=== PATIENT | male | born 1990 | race Caucasian/White ===

== ENCOUNTER 2023-12-22 18:06 | Emergency (ER) | payer OTHER, BC, SELFPAY ==
[2023-12-22 18:25] VITALS: BP 115/71; PULSE 63; RESP 20; TEMP 36.7; O2SAT 99; BMI 25.0
--- NOTE | 2023-12-22 18:25 | ED.SKABFB ---
HPI - Skin/Abscess/Foreign Bdy General Chief complaint: Skin/Abscess/Foreign Body Stated complaint: Rt Index Finger Laceration/Work related Time Seen by Provider: 12/23/23 04:01 Source: patient Mode of arrival: ambulatory Limitations: no limitations History of Present Illness ED Provider: MONICA BERRIOS narrative: 33 yo male L hand dominant injuried R index finger with metal at 4pm. He is unsure about his Tdap. He has no other injuries. Bleeding is controlled. No concern for FB MD complaint: laceration Onset (ago): day(s) (4pm yesterday) Tetanus up to date: unsure Location: R hand Severity: mild Pain Consistency: intermittent Relieving factors: none Exacerbating factors: palpation and movement Associated symptoms: denies other symptoms Treatments prior to arrival: bandages Related Data Allergies Allergy/AdvReac Type Severity Reaction Status Date / Time No Known Allergies Allergy Verified 12/22/23 18:26 Review of Systems Review of Systems: Constitutional : No Fever, No Chills, Cardiovascular : No Chest Pain, No SOB Respiratory : No Dyspnea Gastrointestinal : No abdominal pain Musculoskeletal : No Joint Swelling Skin : No rash, positive skin laceration Neuro : No Weakness, No Numbness All other systems reviewed and are negative [facility] Past Medical History Attestation statement: The following information was validated with the patient. Medical History No pertinent past medical history Social History Social History (Updated 12/23/23 @ 04:36 by Jessica Nicholson DO) Patient Tobacco Use Status: Never used Tobacco Physical Exam Vital Signs: Vital Signs: Last Vital Signs Temp 98.5 F 12/23/23 01:21 Pulse 52 12/23/23 01:21 Resp 18 12/23/23 01:21 BP 113/68 12/23/23 01:21 Pulse Ox 100 12/23/23 01:21 O2 Del Method Room Air 12/23/23 01:21 BMI result Body Mass Index 25.0 Appearance: Alert. Oriented X3. No acute distress. Eyes: Pupils equal, round and reactive to light. ENT: Pharynx normal. Neck: Normal inspection. Neck supple. CVS: Pulses normal. Respiratory: No respiratory distress. Abdomen: atraumatic Skin: Skin warm and dry. Normal skin color. Extremities: No lower extremity edema. R index finger overlying the middle phalanx on dorsum that dose cross distal joint macerated superficial avulsion but has flexion intact but slightly limited flexion at distal phalanx due to swelling, BCR intact Neuro: Oriented X 3. No motor deficit. No sensory deficit. Course Course Course Narrative: This is a Rapid Medical Examination (RME) performed by Maikel Powell PA-C in triage. Full HPI, ROS, assessment and treatment plan per primary provider in the Main ED. 33 yo male here for eval of laceration to right index finger sustained at work today after cutting the finger on a chair rack. reports a large amount of blood initially, now controlled. no thinners. unsure of tetanus. Plan: ?lac repair, tdap booster Medical Decision Making Medical Decision Making MDM Narrative: 33 yo male L hand dominant here with superficial maceration to R index finger at this time edges are very thin and friable he has flex and ext intact though there is concern for distal phalanx on testing at this time will steri strip place splint and refer to ortho - he is aware to call today. NV intact Differential Diagnosis Differential Diagnoses: The differential diagnosis associated with the presentation includes laceration, partial tendon injury Discharge Plan Discharge Clinical Impression: Finger laceration Patient Disposition: Home, Self-Care Instructions: Finger Laceration (ED) Additional Instructions: monitor for increased redness, yellow drainage, fevers please call and follow up with hand surgery today to make sure there is no underlying tendon injury okay to shower but no pool/ocean/hyde splint for the next 3 days steri strips will fall off in 5 to 7 days - try not to get wet if possible Referrals: [facility] [Provider Group] Stand Alone Forms: Work/School Release Print Language: [place] Citizen
[2023-12-23 01:21] VITALS: BP 113/68; PULSE 52; RESP 18; TEMP 36.9; O2SAT 100
[2023-12-23] MEDS: Diphth,Pertus(ACell),Tet Adult 0.5 ML SYRINGE IM (04:48)
[2023-12-23 04:56] VITALS: BP 120/70; PULSE 58; RESP 16; TEMP 36.7; O2SAT 98
== END 2023-12-23 04:57 | disposition home or self-care (01) ==
PROVIDERS: Emergency Provider Emergency Medicine
DX: S61.210A Laceration without foreign body of right index finger without damage to nail, initial encounter (principal); M79.641 Pain in right hand; W45.8XXA Other foreign body or object entering through skin, initial encounter; Y93.89 Activity, other specified; Y92.89 Other specified places as the place of occurrence of the external cause; Y99.8 Other external cause status; Z23 Encounter for immunization
CPT/HCPCS: 29130; 90471; 90715; 99283; 99284

== ENCOUNTER 2023-12-24 10:57 | Outpatient (AMB) | payer OTHER, BC, SELFPAY ==
--- NOTE | 2023-12-24 11:06 | MHC.OFFVIS ---
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 Patient reports while at work he was moving a heavy object with wheels at the bottom when his finger got caught on one of the wheels causing a laceration to his finger. He presented to [facility] ER where x-rays were taken and steri-strips were applied as well as a finger splint. He continues to have swelling. His current pain level is a 3 out of 10. He has been out of work since injury with a return to work date on 12/27/23. 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 He reports he was moving a heavy object at work with wheels at the bottom when his finger got caught on one of the wheels causing a laceration to his finger. He was seen at ER where x-rays were performed, steri strips were applied and she was placed in a finger splint. He currently states he has swelling and pain in his finger and rates the pain as 3 on the scale of 0-10. He has been out of work since the injury. [facility] Medical History No pertinent past medical history Social History (Updated 12/24/23 @ 11:08 by KADEN Castellanos) Patient Tobacco Use Status: Current someday Tobacco user e-Cigarette/Vaping Use: Currently Using Current occupation: export coordinator, right hand dominant Review of Systems Const All systems reviewed & are unremarkable except as noted in HPI and below Physical Exam Vital Signs: BMI result Body Mass Index 25.0 Const General: cooperative, healthy appearing, comfortable, no acute distress, well developed and alert Orientation/consciousness: patient oriented x3 HEENT Head: Yes normal to inspection, Yes normocephalic and Yes atraumatic Eyes General: appearance normal, both eyes and all related structures Resp Effort & Inspection: normal respiratory effort and able to speak in complete sentences Cardio Rate: regular rate Peripheral pulses: Peripheral pulses 2+ throughout GI Palpation (GI): Soft to palpation Skin Lesions: no lesions Rashes: no rashes Neuro General: patient oriented x3 Extrem Other: Right finger: Normal to inspection. He does have an abrasion over the dorsal aspect of DIP with slight erythema due to granulation tissue. He also has a laceration over the PIP of index finger at the volar side. FDP and FDS are intact. Full extension with lag. NVI. Assessment & Plan Assessment & Plan (1) Finger laceration: Code(s): S61.219A - Laceration without foreign body of unspecified finger without damage to nail, initial encounter Category: Medical Qualifiers: Damage to nail status: without damage Encounter type: initial encounter Finger: index finger Foreign body presence: without foreign body Laterality: right Qualified Code(s): S61.210A - Laceration without foreign body of right index finger without damage to nail, initial encounter Plan We discussed placing him in a finger splint. I did show him some active and passive ROM of his finger and encouraged him to work throughout the week. He should also perform warm soapy water washes to his finger and dry completely and then reapply dry dressing. He will remain out of work till I see her back in 1 week with new x-rays, sooner if needed. He was also given a prescription of antibiotics for the redness over dip joint Medications: New amoxicillin-pot clavulanate 875-125 mg 1 tab PO BID 14 tabs 0RF 7 days Patient Instructions: Scribed for Michael Kirkland PA-C, by Dc Purdy medical office scheduler, on 12/24/2023 at 11:15 AM EST. ?I, Michael Kirkland PA-C, have personally reviewed and agree with the information entered by the scribe. Coding Level of Care Code New Pt Level 3 (27277) Complex EM visit Add On G2211 Diagnoses Finger laceration S61.210A Damage to nail status: without damage Encounter type: initial encounter Finger: index finger Foreign body presence: without foreign body Laterality: right
[2023-12-24 11:10] VITALS: BMI 25.0
== END 2023-12-24 11:46 | disposition home or self-care (01) ==
PROVIDERS: PCP Internal Medicine; Visit Provider Physician Assistant
DX: S61.210A Laceration without foreign body of right index finger without damage to nail, initial encounter (principal); Z04.2 Encounter for examination and observation following work accident
CPT/HCPCS: 99203

== ENCOUNTER → 2023-12-24 10:57 | Outpatient (BNVA) | payer BC, OTHER, SELFPAY | PROVIDERS: PCP Internal Medicine; Visit Provider Physician Assistant | DX: S61.210A Laceration without foreign body of right index finger without damage to nail, initial encounter (principal) | CPT/HCPCS: 99202 ==

== ENCOUNTER 2023-12-31 10:53 | Outpatient (AMB) | payer OTHER, BC, SELFPAY ==
--- NOTE | 2023-12-31 11:15 | MHC.OFFVIS ---
Intake Visit Reasons: f/u WC Rt Index Finger Laceration 12/22/23 Intake Note: Abilio a 33 year old male who presents today for a follow up of WC right index finger laceration, DOI 12/22/23. Patient reports he is doing well, states wound is healing good. He has completed antibiotics as prescribed. Allergies No Known Allergies Allergy (Verified 12/31/23 11:18) Medication List - Last Reconciled 01/02/24 by Michael Kirkland PA-C No Known Home Meds HPI HPI f/u WC Rt Index Finger Laceration 12/22/23: Details: 33-year-old male who returns to the office today for a follow-up of right index finger laceration work, 12/22/23. He states he has no pain and is doing well overall. He has completed his antibiotics regimen as prescribed. He has no other concerns today. [facility] Medical History No pertinent past medical history Social History (Updated 12/24/23 @ 11:08 by Rula Martinez [facility]) Patient Tobacco Use Status: Current someday Tobacco user e-Cigarette/Vaping Use: Currently Using Current occupation: payroll director, right hand dominant Review of Systems Const All systems reviewed & are unremarkable except as noted in HPI and below Physical Exam Extrem Other: Right index finger: Normal to inspection. All abrasions are well healed. No redness or drainage. Full extension and flexion without deficits. NVI. Assessment & Plan Assessment & Plan (1) Finger laceration: Code(s): S61.219A - Laceration without foreign body of unspecified finger without damage to nail, initial encounter Category: Medical Qualifiers: Damage to nail status: without damage Encounter type: initial encounter Finger: index finger Foreign body presence: without foreign body Laterality: right Qualified Code(s): S61.210A - Laceration without foreign body of right index finger without damage to nail, initial encounter Plan He will increase activities as tolerated. He has finished his course of antibiotics and he will contact the office if he has any redness or drainage, otherwise he will return to work without limitations and see me back as needed. Patient Instructions: Scribed for Michael Kirkland PA-C, by Dc Purdy medical assistant prn, on 12/31/2023 at 10:45 AM EST.? I, Michael Kirkland PA-C, have personally reviewed and agree with the information entered by the scribe. Coding Level of Care Code Est Pt Level 3 (00403) Complex EM visit Add On G2211 Diagnoses Finger laceration S61.210A Damage to nail status: without damage Encounter type: initial encounter Finger: index finger Foreign body presence: without foreign body Laterality: right
== END 2023-12-31 11:46 | disposition home or self-care (01) ==
PROVIDERS: PCP Registered Nurse; Visit Provider Physician Assistant
DX: S61.210A Laceration without foreign body of right index finger without damage to nail, initial encounter (principal); Z04.2 Encounter for examination and observation following work accident
CPT/HCPCS: 99213

== ENCOUNTER → 2023-12-31 10:53 | Outpatient (BNVA) | payer BC, OTHER, SELFPAY | PROVIDERS: PCP Registered Nurse; Visit Provider Physician Assistant | DX: S61.210D Laceration without foreign body of right index finger without damage to nail, subsequent encounter (principal) | CPT/HCPCS: 99212 ==